=== PATIENT | female | born 1970 | race Caucasian/White ===

== ENCOUNTER 2023-05-22 16:03 | Emergency (ER) | payer OTHER, SELFPAY ==
--- NOTE | ~2023-05-22 | XR_ITS ---
EXAM: XR ankle LT min 3V DATE: 05/22/2023 16:26 HISTORY: left ankle pain due to fall today/lateral medial pain . COMPARISON: None available. FINDINGS: Normal mineralization. No acute fracture or dislocation. Old medial malleolus avulsion fra cture fragment. No lytic or blastic lesion. Mild degenerative change at the tibiotalar joint. Moderat e Achilles enthesopathy. No erosion or periosteal change. Soft tissues within normal limits. Small an kle joint effusion. IMPRESSION: No acute osseous finding in the left ankle. Reviewed, dictated and finalized at location K.
[2023-05-22 16:17] VITALS: BP 146/91; PULSE 60; RESP 18; TEMP 36.9; O2SAT 100
--- NOTE | 2023-05-22 16:23 | ED.LOWEXIN ---
HPI - Extremity Injury (Lower) General Chief Complaint: Extremity Injury, Lower Stated Complaint: Lt Foot Pain Due to Fall Time Seen by Provider: 05/22/23 16:18 Source: patient, RN notes reviewed and old records reviewed Mode of arrival: ambulatory (placed in wheelchair) Limitations: no limitations History of Present Illness HPI Narrative: 53 year old female who presents to [facility] care with complaints of injury to her left ankle at about 1400 today when she was wearing flip flops and she stepped on large rock in driveway and twisted her ankle and fell. Patient reports pain to the lateral aspect of her left ankle with pain with flexion of left foot and weight bearing. Patient has strong plses to left foot denies any tingling or numbness of left foot, toes warm and mobile. Patient denies any LOC or hitting head when she fell, she has applied ice to her ankle and has elevated foot prior to arrival. MD complaint: ankle injury Onset (ago): hour(s) (1400 today) Injury: Left: ankle Type of Injury: other (twisting of ankle and fall) Place: home Severity scale (1-10): 6 Treatments prior to arrival: cold therapy Related Data Home Medications Medication Instructions Recorded Confirmed omega-3 fatty acids-vitamin E 2 cap PO DAILY 11/14/22 05/22/23 1,000 mg-5 unit capsule Allergies Allergy/AdvReac Type Severity Reaction Status Date / Time levothyroxine Allergy Severe chest pain Verified 05/22/23 16:13 Penicillins AdvReac Unknown Unknown Verified 05/22/23 16:13 Review of Systems Review of Systems: CONSTITUTIONAL: Denies fever, chills, or sweats. EYES: Denies visual changes, redness, or discharge. ENT: Denies rhinorrhea, congestion, sore throat, or otalgia. CARDIOVASCULAR: Denies chest pain, palpitations, or edema. RESPIRATORY: Denies cough or dyspnea. GASTROINTESTINAL: Denies abdominal pain, nausea, vomiting, or diarrhea. GENITOURINARY: Denies dysuria or hematuria. SKIN: Denies rash or itching. MUSCULOSKELETAL: Denies back pain,positive for left ankle pain and swelling, or myalgia. NEUROLOGIC: Denies headache, numbness, or weakness. PSYCHIATRIC: Denies anxiety or depression. All systems reviewed & are unremarkable except as noted in HPI and below [facility] Past Medical History Medical History (Updated 05/23/23 @ 22:34 by Teresa Guillermo NP) Dyslipidemia HTN (hypertension) Hypothyroidism Surgical History Surgical History (Updated 05/23/23 @ 22:26 by Teresa Guillermo NP) H/O: hysterectomy History of appendectomy Hx of cholecystectomy Previous section Social History Social History (Updated 11/11/22 @ 14:56 by Luna Nicole) Smoking status: Unknown if ever smoked Alcohol intake: current Substance use: never Substance use type: does not use Lack of Transportation: No Lack of Food: Never True Current Housing: I Have Housing Concerned About Future Housing: No Difficulty Paying Gas/Electric Bills: No Difficulty Paying for Meds: No Currently Unemployed: No Education: Master's Degree or Higher Difficulty w/ Childcare or Family Care: No Living arrangements: with family Occupation/Education: occupation Gender identity (if verbalized by the patient): Female Sexual Orientation (if Verbalized by the Patient): Straight or Heterosexual Comments At time of signature, agree with nursing past medical, surgical, social and family history. There is no relevant family history pertinent to the presenting complaint Exam Narrative: GENERAL: Well-appearing, well-nourished, and in no acute distress. HEAD: Normocephalic, atraumatic. EYES: PERRLA and EOMI. ENT: Nares clear, no rhinorrhea or epistaxis. Mucous membranes moist. NECK: Supple.no lymphadenopathy CHEST: Clear to auscultation. No respiratory distress.SAO2 100% on room air HEART: Regular rate and rhythm. No murmur heard. Normal peripheral pulses. ABDOMEN: Soft, nontender, nondistended, normal active bowel sounds. EXTREMI
== END 2023-05-22 16:48 | disposition home or self-care (01) ==
PROVIDERS: Emergency Provider Registered Nurse; PCP Physician Assistant Medical
DX: S93.402A Sprain of unspecified ligament of left ankle, initial encounter (principal); M25.472 Effusion, left ankle; E78.5 Hyperlipidemia, unspecified; I10 Essential (primary) hypertension; E03.9 Hypothyroidism, unspecified; X50.0XXA Overexertion from strenuous movement or load, initial encounter; Y92.008 Other place in unspecified non-institutional (private) residence as the place of occurrence of the external cause
CPT/HCPCS: 73610; 99213; G0463

== ENCOUNTER 2024-11-29 15:00 | Outpatient (RCR) | payer OTHER, SELFPAY ==
--- NOTE | 2024-08-31 16:05 | PTOPEVAL1 ---
Assessment and note entered by Beth Langford, PT Evaluation Information Assessment Status Evaluation Diagnosis pain in left hip, low back pain unspecified ICD-10 Condition Codes (PT) Pain in low back M54.50,Pain in left hip M25.552, Weakness R53.1 Other ICD-10 Condition Codes ( stiffness left hip PT) Onset December 2023 Subjective Information Started going to a chiropractor 3 years ago and was told her tailbone was turned . Pt was good for over a year after her sessions with the chiropractor. Had to go back to chiro recently but all the relief was temporary. States hip started to hurt talked to current chiropractor and was told ITB was tight. Can always tell when tailbone is out of place. And also can no longer sleep on left side. 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 Laying on her back flat sometimes relieves the pain or laying on stomach with LLE stretched out Reported Pain Level Pain Score 1,1: Self Report Assessment PT Clinical Summary Pt presents with history of low back pain and now hip pain. She had seen chiropractors in the past with resolution of low back symptoms, but more recent visit to chiropractor and left hip began to hurt. Pt evaluation shows pelvic alignment deficits, decreased lumbopelvic core strength, decreased ROM of left hip as compared to right, and compensatory tightness and adhesions to LEs. Pt will greatly benefit from physical therapy to address deficits, teach patient lumbopelvic stabilization, improve pain, and return pt to pain -free PLOF Plan of Care Interventions Electrical Stimulation,Hot Pack/Cold Pack,Manual Therapy,Mechanical Traction,Neuro Re-education, Therapeutic Activities,Therapeutic Exercise,Self- Care/Home Management,Ultrasound Other Interventions IASTM, Taping PT Services Indicated Yes Treatment Frequency and 2x weekly x 10 visits Duration These treatments will address the objective and functional deficits as defined above. The patient will be advanced safely and appropriately in order for the patient to progress towards his/her prior level of function. Additional exercises will be introduced and as well as a comprehensive home exercise program upon discharge, if needed, ?to ensure carryover of functional gains achieved in the clinic. This treatment plan has been reviewed and agreement upon by the patient.
--- NOTE | 2024-08-31 16:05 | OPREHPOC ---
Outpatient Therapy Plan of Care This is a Multidisciplinary Plan of Care that may contain components documented by all disciplines (PT, OT, and ST.) PT Problem 1 PT Problem #1 Knowledge Deficit PT Goal 1 Goal / Goal Update Pt will be independent in HEP Pt will verbalize understanding of diagnosis and prognosis Target Visit 5 PT Problem 2 PT Problem #2 Pain PT Goal 1 Goal / Goal Update Pt will report lowest pain rating at 0/10 to show improvement in overall discomfort Target Visit 5 PT Goal 2 Goal / Goal Update Pt will report greatest pain level at 3/10 or less to improve ADLs and activities Target Visit 10 PT Problem 3 PT Problem #3 Impaired Strength PT Goal 1 Goal / Goal Update Pt will demo equal strength RLE and LLE in all tested planes Target Visit 5 PT Goal 2 Goal / Goal Update Pt will demo core strength of 3+/5 of the TRAM to improve lumbopelvic stability Pt will demo 4/5 or greater strength in LLE to improve knee stability and kinematics with activities Target Visit 10 PT Problem 4 PT Problem #4 Impaired Flexibility PT Goal 1 Goal / Goal Update Pt will demo improved quads flexibility by 10 degrees Target Visit 10
--- NOTE | 2024-10-19 16:19 | PTOPPROG ---
Assessment and note entered by Beth Langford, PT Evaluation Information Assessment Status Progress Diagnosis pain in left hip, low back pain unspecified ICD-10 Condition Codes (PT) Pain in low back M54.50,Pain in left hip M25.552, Weakness R53.1 Other ICD-10 Condition Codes ( stiffness left hip PT) Onset December 2023 Subjective Information cont to need medication to sleep through the night . Thursday night was standing long period of time and could feel the ache come on. That night was a 7/10. Since then has not been back to a 0/10. Some days is chepe to lift leg to put underwear on and falls over, and some days is fine. Thursday did some high reaching but was no worse, was aware of her alignment. Biggest thing has noticed is hips are looser, and can bring leg up onto knee to assist in getting dressed now. Reports has had less stabbing in her back but still has the aching in the back still. Can lay longer on left side before gets the aching than previously Less often has higher pain levels and takes increased time to get to the high level pain. Assessment PT Clinical Summary Pt has attended therapy consistently for hip and back pain. Overall she reports her hips feeling much looser, states she has less instances of intense pain and takes more activity before reaching high levels of pain, and also is able to have lowest levels at 0/10 versus 1/10. She also demo's improvements in strength, but cont to demo some pelvic alignment deficits. Today she was provided information on over the counter back/ pelvic brace to assist in maintaining pelvic stability to reduce pain while continuing strengthening and stability training. Thus patient would benefit from next phase of therapy focused on these aspects to reduce her overall pain. Plan of Care Interventions Electrical Stimulation,Hot Pack/Cold Pack,Manual Therapy,Mechanical Traction,Neuro Re-education, Therapeutic Activities,Therapeutic Exercise,Self- Care/Home Management,Ultrasound Other Interventions IASTM, Taping PT Services Indicated Yes Treatment Frequency and 1-2x weekly x 10 visits Duration These treatments will address the objective and functional deficits as defined above. The patient will be advanced safely and appropriately in order for the patient to progress towards his/her prior level of function. Additional exercises will be introduced and as well as a comprehensive home exercise program upon discharge, if needed, ?to ensure carryover of functional gains achieved in the clinic. This treatment plan has been reviewed and agreement upon by the patient.
--- NOTE | 2024-11-25 13:14 | PCPTNOTE ---
Department called & cancelled scheduled appointment 11/24/2024 due to staffing shortage
--- NOTE | 2024-11-30 15:01 | PCPTNOTE ---
This treatment is being continued on visit number [id number]. Please see documentation on both accounts to view progress. Completed interventions, outcomes, and problems have been marked as Inactive to facilitate the copying of the Care plan routine for recurring accounts.
== END 2024-11-29 23:59 | disposition home or self-care (01) ==
LOC: ANHHIPT 15:00
PROVIDERS: PCP Physician Assistant Medical; Visit Provider Physician Assistant Medical
DX: M25.552 Pain in left hip (principal); M54.50 Low back pain, unspecified
CPT/HCPCS: 97014; 97035; 97110; 97140; 97161; 97750; G0283

== ENCOUNTER 2025-03-03 15:45 | Outpatient (RCR) | payer OTHER, SELFPAY ==
--- NOTE | 2024-11-30 15:00 | PCPTNOTE ---
The treatment documented on this account is a continuation of the treatment documented on visit number [id number] Please see documentation on both accounts to view progress. The Plan of Care has been transitioned and updated within the new V#. I have addressed and agree with the discipline specific Problems, Interventions, and Goals for the current certification period. Completed interventions, outcomes, and problems have been marked as Inactive to facilitate the copying of the Care plan routine for recurring accounts.
--- NOTE | 2025-01-19 16:15 | PCPTNOTE ---
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
--- NOTE | 2025-01-24 08:22 | PTOPPROG ---
Assessment and note entered by Beth Langford, PT Evaluation Information Assessment Status Progress Diagnosis pain in left hip, low back pain unspecified ICD-10 Condition Codes (PT) Pain in low back M54.50,Pain in left hip M25.552, Weakness R53.1 Other ICD-10 Condition Codes ( stiffness left hip PT) Onset December 2023 Subjective Information Pt states a couple days ago had a really bad night for her back. Does feel the left leg and hip is looser and not as tight Self-perceived improvement: 75% Still having some bad nights Still has to take Ibuprofen to sleep through the night. Sometimes can tell it's going to be a bad night and will take an ibuprofen. States if can stretch LLE out and back when sleeping is perfect . Is not as often has pain with laying on it and is less often it wakes her. Assessment PT Clinical Summary Pt has attended therapy consistently for her left hip and low back pain. She reports herself at 75% improvement overall, and is making slow but steady progress in range of motion, flexibility, and strengthening of effected muscles. She also demonstrates significant tone and adhesions BLEs which we have begun to address to offload her lumbar spine. Her left hip has improved enough she reports she has fewer instances of increased pain with laying on it at night and that her low back is now the most limiting deficit. She continues to posture in excessive lordosis that is corrected with cueing but has yet to gain the strength and endurance to maintain this posture while at her two jobs. 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 Due to the chronicity and multiple sites involved, reaching her goals has been slow but steady. Pt will benefit from continued therapy to address muscle length and soft tissue health, offload the lumbar spine, improve strength to stabilize lumbopelvic area, and reduce overall pain. Plan of Care Interventions Electrical Stimulation,Hot Pack/Cold Pack,Manual Therapy,Mechanical Traction,Neuro Re-education, Therapeutic Activities,Therapeutic Exercise,Self- Care/Home Management,Ultrasound Other Interventions IASTM, Taping PT Services Indicated Yes Treatment Frequency and 1-2x weekly x 10 visits Duration These treatments will address the objective and functional deficits as defined above. The patient will be advanced safely and appropriately in order for the patient to progress towards his/her prior level of function. Additional exercises will be introduced and as well as a comprehensive home exercise program upon discharge, if needed, ?to ensure carryover of functional gains achieved in the clinic. This treatment plan has been reviewed and agreement upon by the patient.
== END 2025-03-07 23:59 | disposition home or self-care (01) ==
LOC: ANHHIPT 15:45
PROVIDERS: PCP Physician Assistant Medical; Visit Provider Physician Assistant Medical
DX: M25.552 Pain in left hip (principal); M54.50 Low back pain, unspecified
CPT/HCPCS: 97014; 97110; 97140; 97750; G0283

== ENCOUNTER 2025-04-20 08:00 | Outpatient (RCR) | payer OTHER, SELFPAY ==
--- NOTE | 2025-05-23 11:27 | PCPTNOTE ---
Admitting Provider: Attending Provider: Oxana White PA-C Patient:Kacey Peterson Date of :1970 Patient has not returned for any further treatments since 04/20/2025, therefore she will be discharged at this time. During her plan of care she attended therapy consistently and was able to progress from severe back and milka hip pain to highly functional with very minimal pain. She was able to go on vacation, work her long marketing communications associate shifts with acceptable discomfort. She has not returned for any skilled needs in over 30 days, thus she will be discharged for completion of therapy plan of care. The goals have been met.
== END 2025-05-23 11:36 | disposition home or self-care (01) ==
LOC: ANHHIPT 08:00
PROVIDERS: PCP Physician Assistant Medical; Visit Provider Physician Assistant Medical
DX: M25.552 Pain in left hip (principal); M54.50 Low back pain, unspecified
CPT/HCPCS: 97014; 97110; 97140; G0283